=== PATIENT | male | born 1965 | race Caucasian/White ===

== ENCOUNTER → 2020-01-13 17:07 | Outpatient (BNVA) | payer OTHER, SELFPAY | PROVIDERS: Family Provider Nurse Practitioner; PCP Nurse Practitioner; Visit Provider Nurse Practitioner | DX: I10 Essential (primary) hypertension (principal); E78.5 Hyperlipidemia, unspecified | CPT/HCPCS: 80053; 80061 ==

== ENCOUNTER → 2021-02-21 09:02 | Outpatient (BNVA) | payer OTHER, SELFPAY | PROVIDERS: Family Provider Nurse Practitioner; PCP Nurse Practitioner; Visit Provider Nurse Practitioner | DX: I10 Essential (primary) hypertension (principal); Z12.5 Encounter for screening for malignant neoplasm of prostate; E78.5 Hyperlipidemia, unspecified | CPT/HCPCS: 80053; 80061; 81000; G0103 ==

== ENCOUNTER 2021-06-30 03:19 | Emergency (ER) | payer OTHER, SELFPAY ==
[2021-06-30 03:23] VITALS: BP 134/89; PULSE 88; RESP 14; TEMP 36.5; O2SAT 96; BMI 27.8
[2021-06-30 03:31] VITALS: BP 135/91; PULSE 81; RESP 10; O2SAT 96
--- NOTE | 2021-06-30 03:34 | XRR_ITS ---
PROCEDURE INFORMATION: Exam: XR Chest Exam date and time: 06/30/2021 3:34 AM Age: 55 years old Clinical indication: Chest pressure; Patient HX: Chest pain; Additional info: Cp TECHNIQUE: Imaging protocol: XR of the chest. Views: 1 view. COMPARISON: No relevant prior studies available. FINDINGS: Lungs: There are multiple calcified pulmonary nodules consistent with prior granulomatous disease. Pleural spaces: Unremarkable. No pleural effusion. No pneumothorax. Heart/Mediastinum: Unremarkable. No cardiomegaly. Bones/joints: Unremarkable. XR/XR chest 1V portable [id number] IMPRESSION: No acute disease.
[2021-06-30 03:43] LABS: Basophils % 0.5 %; Eosinophils # 0.2 10^3/uL (0.0-0.8); Eosinophils % 2.3 %; Hematocrit 46.1 % (42.0-52.0); Hemoglobin 16.3 g/dL (11.7-16.6); Lymphocytes # 2.6 10^3/uL (0.8-4.8); Lymphocytes % 33.4 %; Mean Corpuscular HGB Conc 35.4 g/dL (30.0-36.0); Mean Corpuscular Hemoglobin 30.8 pg (28.0-34.0); Mean Corpuscular Volume 87.1 fl (80-94); Mean Platelet Volume 9.5 fL (7.4-10.4); Monocytes # 0.6 10^3/uL (0.2-0.9); Monocytes % 7.6 %; Neutrophils # 4.33 10^3/uL (1.8-7.7); Neutrophils % 55.9 %; Nucleated Red Blood Cells % 0 %; Platelet Count 288 10^3/cmm (130-400); Red Blood Count 5.29 10^6/uL (4.1-5.3); Red Cell Distribution Width 12.4 % (12.1-15.1); White Blood Count 7.8 10^3/uL (4.0-10.0)
[2021-06-30] MEDS: ondansetron 2 mg/ML SDV 2 mL 4 MG IVP (03:52)
[2021-06-30 03:56] LABS: INR 0.92 (0.8-1.2)
[2021-06-30 03:57] LABS: Partial Thromboplastin Time 27.5 SECONDS (23.9-36.7)
[2021-06-30 03:59] LABS: D Dimer 0.38 ug/mIFEU (0-0.59)
[2021-06-30 04:00] LABS: Lactate (Lactic Acid level) 2.6 mmol/L (0.5-2.2)
[2021-06-30 04:09] LABS: SARS Covid-2 Antigen Negative (Negative)
[2021-06-30 04:11] LABS: NT Pro B Type Natriuretic Pept 5 pg/mL (0-125); Procalcitonin 0.02 ng/mL (0-0.5)
[2021-06-30 04:14] LABS: Troponin(5th) Baseline 6 ng/L (0-15)
[2021-06-30 04:22] LABS: Alanine Aminotransferase 14 U/L (0-41); Albumin Level 4.5 g/dL (3.5-5.2); Alkaline Phosphatase 80 IU/L (40-130); Anion Gap 19.8 (5-19); Aspartate Amino Transferase 16 U/L (0-40); Blood Urea Nitrogen 14 mg/dL (6-20); C Reactive Protein 0.3 mg/L (0.0-4.9); Calcium 9.3 mg/dL (8.5-10.5); Carbon Dioxide 21 mmol/L (22-29); Chloride 95 mmol/L (98-107); Creatinine Clr Calc Pharmacy 63.3634; Globulin 2.1 g/dL (1.3-4.6); Glomerular Filtration Rate 48.4 mL/min (90-130); Glucose 128 mg/dL (65-115); Osmolality Calculated 276 mOsm/kg (285-295); Potassium 3.8 mmol/L (3.5-5.1); Sodium 132 mmol/L (136-145); Total Bilirubin 0.8 mg/dL (0.15-1.2); Total Protein 6.6 g/dL (6.6-8.7)
[2021-06-30 04:24] VITALS: BP 123/86; PULSE 86; RESP 18; O2SAT 96
[2021-06-30] MEDS: sodium chloride 0.9% 500 ML 999 ML IV (05:29)
--- NOTE | 2021-06-30 05:35 | ECG_ITS ---
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 Measurements Intervals [place] Rate: 93 P: 59 ID: [id number] QRS: 26 QRSD: 90 T: 39 QT: 349 QTc: 435 Interpretive Statements SINUS RHYTHM WITH OCCASIONAL VENTRICULAR PREMATURE COMPLEXES LOW QRS VOLTAGE IN PRECORDIAL LEADS [QRS DEFLECTION < 1.0 mV IN CHEST LEADS] No previous ECG available for comparison Electronically Signed On 07-01-2021 16:32:07 CDT by Franck Wang M.D. [id number]
[2021-06-30 05:55] VITALS: BP 145/92; PULSE 97; RESP 17; O2SAT 94
--- NOTE | 2021-06-30 06:09 | W.ED.SOB ---
HPI - SOB/Dyspnea General: Chief Complaint: Shortness of Breath/Dyspnea Stated Complaint: cp/weakness Time Seen by Provider: 06/30/21 03:32 History of Present Illness: HPI Narrative: 55-year-old male who states that he had some back and neck pain most a day yesterday. He woke up at 245 this morning with significant shortness of breath, dry cough, nausea, and diaphoresis. He is currently not having any chest pain. His shortness of breath is somewhat improved. Nausea is improved as well. No history of heart disease. No known sick contacts. He has been vaccinated for Covid MD elicited complaint: shortness of breath and cough Pertinent past history: other Onset (ago): hour(s) Timing: intermittent Severity: moderate Relieving factors: nothing Associated symptoms: Reports cough, diaphoresis, nausea, sense of impending doom and vomiting; Deny abdominal pain, chest congestion, chest pain or fever(s) Review of Systems Const: Reports: diaphoresis; Denies: fever(s) ENMT: Denies: dental pain or ear or mastoid pain Card: Denies: chest pain Resp: Denies: chest congestion GI: Reports: nausea and vomiting; Denies: abdominal pain PFSH ED PFSH: Medical History Dyslipidemia Essential (primary) hypertension Surgical History No history of previous surgery Family History Other Heart disease Denies family history of Bleeding disorder Social History Smoking and tobacco status: never smoked Second hand smoke exposure: No Smoking risk assessment/counseling performed?: No Alcohol intake: unknown Desire information about alcohol rehabilitation?: No Counseling given: No Desire information about substance/drug rehabilitation?: No Counseling given: No Caregiver/support person: No Lives independently: Yes Household members: spouse Marital status: Number of children: 1 Highest education level completed: Professional Degree (MD, DO, JONO, DVM, DDS, DPM, etc) service: No Current occupational status: employed and previously employed Current occupation: self Current occupational exposures/hazards: No Pets and animals: No History of recent travel: No Current gender identity: Male Physical Exam HENMT: COMMON NORMALS: normocephalic, atraumatic, external ears normal and Normal external nose present HEAD & SCALP: normocephalic and atraumatic FACE & SINUS: normal facial exam NOSE: Normal external nose present EXTERNAL EAR: Yes external ears normal Chest: COMMONS NORMALS: normal inspection of the chest Resp: COMMON NORMALS: normal respiratory effort, No use of accessory muscles and clear to auscultation bilaterally AUSCULTATION: clear to auscultation bilaterally Cardio: COMMON NORMALS: regular rate and regular rhythm RATE: regular rate RHYTHM: regular rhythm GI: COMMON NORMALS: Normal to inspection, nondistended, normoactive bowel sounds present, Soft to palpation and no masses PALPATION: Yes Soft to palpation Extremity: GENERAL: No edema Course Vital Signs: Vital signs: Vital Signs Temperature 97.7 F 06/30/21 03:23 Pulse Rate 98 06/30/21 06:48 Respiratory Rate 18 06/30/21 06:48 Blood Pressure 162/91 06/30/21 06:48 Pulse Oximetry 98 06/30/21 06:48 MDM - SOB/Dyspnea MDM Narrative: Medical decision making narrative: 55-year-old male with back pain, shortness of breath, diaphoresis, nausea. His white blood cell count is 7.8. His bicarbonate level is 21. Creatinine is 1.5 which is near his baseline. His chest x-ray is negative. His D-dimer is negative. His first troponin is 6. His EKG shows a normal sinus rhythm without acute ST change. His saturations are 95% on room air. His second troponin has been drawn. If it is negative, he will go home. His rapid antigen test for COVID-19 was negative. We will try to get him in 7 to get a repeat for PCR. Lab Data: Labs: Lab Results 06/30/21 06/30/21 06/30/21 Range/Units 03:28 03:28 03:28 WBC 7.8 (4.0-10.0) 10^3/ uL RBC 5.29 (4.1-5.3) 10^6/u L Hgb 16.3 (11.7-16.6) g/dL Hct 46.1 (42.0-52.0) % MCV 87.1 (80-94) fl MCH 30.8 (28.0-34.0) pg MCHC 35.4 (30.0-36.0) g/dL RDW 12.4 (12.1-15.1) % Plt Count 288 (130-400) 10^3/c mm MPV 9.5 (7.4-10.4) fL Neut % (Auto) 55.9 % Lymph % (Auto) 33.4 % [place] % (Auto) 7.6 % Eos % (Auto) 2.3 % Baso % (Auto) 0.5 % Neut # (Auto) 4.33 (1.8-7.7) 10^3/u L Lymph # (Auto) 2.6 (0.8-4.8) 10^3/u L [place] # (Auto) 0.6 (0.2-0.9) 10^3/u L Eos # (Auto) 0.2 (0.0-0.8) 10^3/u L Baso # (Auto) 0.0 (0.0-0.1) 10^3/u L Nucleated RBC % (a uto) 0 % Nucleated RBCs # 0.0 /100WBC PT 12.70 (12.1-14.9) SECO NDS INR 0.92 (0.8-1.2) APTT 27.5 (23.9-36.7) SECO NDS D-Dimer 0.38 (0-0.59) ug/mIFE U Sodium 132 L (136-145) mmol/L Potassium 3.8 (3.5-5.1) mmol/L Chloride 95 L (98-107) mmol/L Carbon Dioxide 21 L (22-29) mmol/L Anion Gap 19.8 H (5-19) BUN 14 (6-20) mg/dL Creatinine 1.5 H (0.7-1.2) mg/dL GFR Calculation 48.4 L (90-130) mL/min Glucose 128 H (65-115) mg/dL Calculated Osmolal ity 276 L (285-295) mOsm/k g Lactate (0.5-2.2) mmol/L Calcium 9.3 (8.5-10.5) mg/dL Total Bilirubin 0.8 (0.15-1.2) mg/dL AST 16 (0-40) U/L ALT 14 (0-41) U/L Alkaline Phosphata se 80 (40-130) IU/L Troponin T Baselin e (0-15) ng/L Troponin T 120 Min [place] (0-15) ng/L Delta Troponin T (0-10) ABS# C-Reactive Protein 0.3 (0.0-4.9) mg/L NT-Pro-B Natriuret Pep 5 (0-125) pg/mL Total Protein 6.6 (6.6-8.7) g/dL Albumin 4.5 (3.5-5.2) g/dL Globulin 2.1 (1.3-4.6) g/dL Procalcitonin 0.02 (0-0.5) ng/mL SARS-CoV-2 Ag (Rap id) (Negative) 06/30/21 06/30/21 06/30/21 Range/Units 03:28 03:28 03:43 WBC (4.0-10.0) 10^3/ uL RBC (4.1-5.3) 10^6/u L Hgb (11.7-16.6) g/dL Hct (42.0-52.0) % MCV (80-94) fl MCH (28.0-34.0) pg MCHC (30.0-36.0) g/dL RDW (12.1-15.1) % Plt Count (130-400) 10^3/c mm MPV (7.4-10.4) fL Neut % (Auto) % Lymph % (Auto) % [place] % (Auto) % Eos % (Auto) % Baso % (Auto) % Neut # (Auto) (1.8-7.7) 10^3/u L Lymph # (Auto) (0.8-4.8) 10^3/u L [place] # (Auto) (0.2-0.9) 10^3/u L Eos # (Auto) (0.0-0.8) 10^3/u L Baso # (Auto) (0.0-0.1) 10^3/u L Nucleated RBC % (a uto) % Nucleated RBCs # /100WBC PT (12.1-14.9) SECO NDS INR (0.8-1.2) APTT (23.9-36.7) SECO NDS D-Dimer (0-0.59) ug/mIFE U Sodium (136-145) mmol/L Potassium (3.5-5.1) mmol/L Chloride (98-107) mmol/L Carbon Dioxide (22-29) mmol/L Anion Gap (5-19) BUN (6-20) mg/dL Creatinine (0.7-1.2) mg/dL GFR Calculation (90-130) mL/min Glucose (65-115) mg/dL Calculated Osmolal ity (285-295) mOsm/k g Lactate 2.6 H (0.5-2.2) mmol/L Calcium (8.5-10.5) mg/dL Total Bilirubin (0.15-1.2) mg/dL AST (0-40) U/L ALT (0-41) U/L Alkaline Phosphata se (40-130) IU/L Troponin T Baselin e 6 (0-15) ng/L Troponin T 120 Min [place] (0-15) ng/L Delta Troponin T (0-10) ABS# C-Reactive Protein (0.0-4.9) mg/L NT-Pro-B Natriuret Pep (0-125) pg/mL Total Protein (6.6-8.7) g/dL Albumin (3.5-5.2) g/dL Globulin (1.3-4.6) g/dL Procalcitonin (0-0.5) ng/mL SARS-CoV-2 Ag (Rap id) Negative (Negative) 06/30/21 Range/Units 05:35 WBC (4.0-10.0) 10^3/ uL RBC (4.1-5.3) 10^6/u L Hgb (11.7-16.6) g/dL Hct (42.0-52.0) % MCV (80-94) fl MCH (28.0-34.0) pg MCHC (30.0-36.0) g/dL RDW (12.1-15.1) % Plt Count (130-400) 10^3/c mm MPV (7.4-10.4) fL Neut % (Auto) % Lymph % (Auto) % [place] % (Auto) % Eos % (Auto) % Baso % (Auto) % Neut # (Auto) (1.8-7.7) 10^3/u L Lymph # (Auto) (0.8-4.8) 10^3/u L [place] # (Auto) (0.2-0.9) 10^3/u L Eos # (Auto) (0.0-0.8) 10^3/u L Baso # (Auto) (0.0-0.1) 10^3/u L Nucleated RBC % (a uto) % Nucleated RBCs # /100WBC PT (12.1-14.9) SECO NDS INR (0.8-1.2) APTT (23.9-36.7) SECO NDS D-Dimer (0-0.59) ug/mIFE U Sodium (136-145) mmol/L Potassium (3.5-5.1) mmol/L Chloride (98-107) mmol/L Carbon Dioxide (22-29) mmol/L Anion Gap (5-19) BUN (6-20) mg/dL Creatinine (0.7-1.2) mg/dL GFR Calculation (90-130) mL/min Glucose (65-115) mg/dL Calculated Osmolal ity (285-295) mOsm/k g Lactate (0.5-2.2) mmol/L Calcium (8.5-10.5) mg/dL Total Bilirubin (0.15-1.2) mg/dL AST (0-40) U/L ALT (0-41) U/L Alkaline Phosphata se (40-130) IU/L Troponin T Baselin e (0-15) ng/L Troponin T 120 Min [place] 6.65 (0-15) ng/L Delta Troponin T 0.65 (0-10) ABS# C-Reactive Protein (0.0-4.9) mg/L NT-Pro-B Natriuret Pep (0-125) pg/mL Total Protein (6.6-8.7) g/dL Albumin (3.5-5.2) g/dL Globulin (1.3-4.6) g/dL Procalcitonin (0-0.5) ng/mL SARS-CoV-2 Ag (Rap id) (Negative) Discharge Plan Discharge Patient Disposition: Home Condition: Stable Prescriptions: New Zofran 4 mg tablet 4 mg PO Q6H PRN (Reason: nausea and vomiting) Qty: 10 RF: 0 No Action aspirin [Adult Low Dose Aspirin] 81 mg tablet,delayed release (DR/EC) 81 mg PO DAILY RF: 0 multivitamin [Daily Multi-Vitamin] Tablet 1 tab PO DAILY RF: 0 atorvastatin 20 mg tablet 20 mg PO DAILY Qty: 90 RF: 1 lisinopril 10 mg tablet 10 mg PO DAILY Qty: 90 RF: 1 Discharge Orders: Discharge ED (Routine); Ordered 06/30/21 Ordered By: Lon Chávez Referrals: Angeles Henry, SENIOR DATA SCIENTIST-C [Primary Care Provider] - 1-3 days Discharge Diet: Advance as tolerated Discharge Activity: Increase activity as tolerated Patient Instructions: Viral Syndrome (ED) Activity Restrictions/Additional Instructions: Your screening test for Covid should be back within 48 hours. Until that test comes back negative, you should quarantine at home. Return for worsening chest pain, worsening shortness of breath, any other concerning symptoms. Use the nausea medication scheduled for the first 24 hours, then as needed. Coding Level of Care Code ED Breakfast And Room Attendant for [place] Fwpedro pablo Exam Detailed
[2021-06-30 06:23] VITALS: BP 158/85; PULSE 90; RESP 20; O2SAT 95
[2021-06-30 06:25] LABS: Troponin 5 2HR 6.65 ng/L (0-15); Troponin 5 2HR Delta 0.65 ABS# (0-10)
[2021-06-30] MEDS: dexamethasone 10 mg/mL INJ 6 MG IVP (06:42)
[2021-06-30 06:48] VITALS: BP 162/91; PULSE 98; RESP 18; O2SAT 98
[2021-07-01 22:28] LABS: Quest SARS-CoV-2 RNA NOT DETECTED (NOT DETECTED)
--- NOTE | 2021-07-02 14:19 | PC.NURSE ---
pt called and given the results of his covid test
== END 2021-06-30 06:57 | disposition home or self-care (01) ==
PROVIDERS: Emergency Provider Emergency Medicine; PCP Nurse Practitioner
DX: M54.9 Dorsalgia, unspecified (principal); R06.02 Shortness of breath; R61 Generalized hyperhidrosis; R11.0 Nausea; I10 Essential (primary) hypertension; Z20.822 Contact with and (suspected) exposure to COVID-19
CPT/HCPCS: 71045; 80053; 83605; 83880; 84145; 84484; 85025; 85378; 85610; 85730; 86140; 87426; 87635; 93005; 96374; 96375; 99284; J1100; J2405; J7040

== ENCOUNTER → 2021-08-13 14:23 | Outpatient (BNVA) | payer OTHER, SELFPAY | PROVIDERS: PCP Nurse Practitioner; Visit Provider Nurse Practitioner | DX: I10 Essential (primary) hypertension (principal); E78.5 Hyperlipidemia, unspecified | CPT/HCPCS: 80053; 80061; 81000 ==

== ENCOUNTER → 2022-02-11 14:26 | Outpatient (BNVA) | payer OTHER, SELFPAY | PROVIDERS: PCP Nurse Practitioner; Visit Provider Nurse Practitioner | DX: I10 Essential (primary) hypertension (principal); E78.5 Hyperlipidemia, unspecified | CPT/HCPCS: 80053; 80061 ==

== ENCOUNTER → 2022-08-08 15:57 | Outpatient (BNVA) | payer OTHER, SELFPAY | PROVIDERS: PCP Nurse Practitioner; Visit Provider Nurse Practitioner | DX: I10 Essential (primary) hypertension (principal); Z12.5 Encounter for screening for malignant neoplasm of prostate; E78.5 Hyperlipidemia, unspecified | CPT/HCPCS: 80053; 80061; G0103 ==

== ENCOUNTER → 2023-03-13 14:35 | Outpatient (BNVA) | payer OTHER, SELFPAY | PROVIDERS: PCP Nurse Practitioner; Visit Provider Nurse Practitioner | DX: E78.5 Hyperlipidemia, unspecified (principal); I10 Essential (primary) hypertension | CPT/HCPCS: 80053; 80061 ==

== ENCOUNTER → 2023-09-11 10:51 | Outpatient (BNVA) | payer OTHER, SELFPAY | PROVIDERS: PCP Nurse Practitioner; Visit Provider Nurse Practitioner | DX: E78.5 Hyperlipidemia, unspecified (principal); I10 Essential (primary) hypertension; Z12.5 Encounter for screening for malignant neoplasm of prostate | CPT/HCPCS: 80053; 80061; G0103 ==

== ENCOUNTER → 2024-03-31 15:18 | Outpatient (BNVA) | payer OTHER, SELFPAY | PROVIDERS: PCP Nurse Practitioner; Visit Provider Nurse Practitioner | DX: I10 Essential (primary) hypertension (principal); E78.5 Hyperlipidemia, unspecified | CPT/HCPCS: 80053; 80061 ==

== ENCOUNTER → 2024-09-15 15:29 | Outpatient (BNVA) | payer OTHER, SELFPAY | PROVIDERS: PCP Nurse Practitioner; Visit Provider Nurse Practitioner | DX: Z12.5 Encounter for screening for malignant neoplasm of prostate (principal); I10 Essential (primary) hypertension; E78.5 Hyperlipidemia, unspecified | CPT/HCPCS: 80053; 80061; G0103 ==

== ENCOUNTER → 2025-03-22 16:02 | Outpatient (BNVA) | payer OTHER, SELFPAY | PROVIDERS: PCP Nurse Practitioner; Visit Provider Nurse Practitioner | DX: I10 Essential (primary) hypertension (principal) | CPT/HCPCS: 80053; 80061 ==

== ENCOUNTER → 2025-09-13 15:18 | Outpatient (BNVA) | payer OTHER, SELFPAY | PROVIDERS: PCP Nurse Practitioner; Visit Provider Nurse Practitioner | DX: Z12.5 Encounter for screening for malignant neoplasm of prostate (principal); I10 Essential (primary) hypertension; E78.5 Hyperlipidemia, unspecified | CPT/HCPCS: 80053; 80061; G0103 ==